=== PATIENT | male | born 1970 | race Caucasian/White ===

== ENCOUNTER 2017-06-16 14:35 | Emergency (ER) | payer OTHER ==
[2017-06-16 14:59] VITALS: BMI 36.6
[2017-06-16 15:03] VITALS: RESP 18; TEMP 98.4
--- NOTE | 2017-06-16 15:19 | ED PDOC ---
Arrival/HPI - General Chief Complaint: Back Pain Time Seen by Provider: 06/16/17 15:10 Historian: Patient - History of Present Illness Narrative History of Present Illness (Text): 06/16/17 15:15 46 y/o male, pmh including cyst on the lower back, nkda, c/o lower back cystic pain and swelling x 4-5 days. Pt. stated that he has lump on the same region for about 1 year, usually not painful, started to be painful for the past 4-5 days, aching pain, painful to palpitate, no fever or chills, no numbness or tingling, no urinary or bowel incontinence or retention, no other medical or psychological complaints. Past Medical History - Provider Review Nursing Documentation Reviewed: Yes - Infectious Disease Hx of Infectious Diseases: None - Psychiatric Hx Substance Use: No - Anesthesia Hx Anesthesia: No - Suicidal Assessment Feels Threatened In Home Enviroment: No Family/Social History - Physician Review Nursing Documentation Reviewed: Yes Family/Social History: Unknown Family HX Smoking Status: Never Smoked Hx Alcohol Use: No Hx Substance Use: No Allergies/Home Meds Allergies/Adverse Reactions: Allergies No Known Allergies Allergy (Verified 07/02/16 12:36) Review of Systems - Review of Systems Constitutional: absent: Fatigue, Fevers Eyes: absent: Vision Changes ENT: absent: Hearing Changes Respiratory: absent: SOB, Cough Cardiovascular: absent: Chest Pain Gastrointestinal: absent: Abdominal Pain, Nausea, Vomiting Skin: Rash, Skin Lesions. absent: Pruritis, Laceration, Abscess, Ulcer, Cellulitis Neurological: absent: Headache, Dizziness, Speech Changes, Facial Droop Physical Exam Vital Signs Reviewed: Yes Vital Signs Temp Pulse Resp BP Pulse Ox 06/16/17 15:02 98.4 F 89 18 126/80 97 Temperature: Afebrile Blood Pressure: Normal Pulse: Regular Respiratory Rate: Normal Appearance: Positive for: Well-Appearing, Non-Toxic, Comfortable Pain Distress: Moderate Mental Status: Positive for: Alert and Oriented X 3 - Systems Exam Head: Present: Atraumatic, Normocephalic Pupils: Present: PERRL Extroacular Muscles: Present: EOMI Conjunctiva: Present: Normal Mouth: Present: Moist Mucous Membranes Neck: Present: Normal Range of Motion Respiratory/Chest: Present: Clear to Auscultation, Good Air Exchange. No: Respiratory Distress, Accessory Muscle Use Cardiovascular: Present: Regular Rate and Rhythm, Normal S1, S2. No: Murmurs Abdomen: Present: Normal Bowel Sounds. No: Tenderness, Distention, Peritoneal Signs Back: Present: Normal Inspection, Other (Lower lumbar region: visible and palpable fluctuant with tenderness to palpate abscess approx. 6cm diameter with no cellulitir or streaking, no ulcers, no shingle or vesicular type of rash, no bullseye or target signs, FROM without limitation sensation intact, motor 5/5, neurovascular intact. ). No: CVA Tenderness, Paraspinal Tenderness, Pain with Leg Raise Upper Extremity: Present: Normal Inspection. No: Cyanosis, Edema Lower Extremity: Present: Normal Inspection. No: Edema Neurological: Present: GCS=15, CN II-XII Intact, Speech Normal Skin: Present: Warm, Dry, Normal Color. No: Rashes Psychiatric: Present: Alert, Oriented x 3, Normal Insight, Normal Concentration Medical Decision Making ED Course and Treatment: 06/16/17 15:18 -sonogram bedsite confirm approx. 1.5cm underneath the skin there is approx. [id number] fluid filled abscess noted, discussed and agreed on the I&D. -sensation intact, motor 5/5, irrigate with normal saline, clean with betadine, injected approx. 3cc of lidocaine with epinephrine, #11 blade made 1cm incision , approx. 2cc of purulant drainage noted with blood tinged, iodoform packing 1/2 " inserted, xerofoam and gauze dressing, tape, sensation intact, motor 5/5. Pt. tolerated the procedure well, no focal neurological deficits 06/16/17 16:18 -keflex, bactrim ds, motrin. -Discharge home with keflex, bactrim ds, motrin, return to the ER for wound check/packing and dressing change, keep the dressing dry and clean follow up with your own pmd and general surgeon within 2 days, return to the ER for any new or worsening signs or symptoms. - Medication Orders Current Medication Orders: Discontinued Medications Cephalexin Monohydrate (Keflex) 500 mg PO STAT STA PRN Reason: Protocol Stop: 06/16/17 16:23 Ibuprofen (Motrin Tab) 600 mg PO STAT STA Stop: 06/16/17 16:23 Trimethoprim/Sulfamethoxazole (Bactrim Ds Tab) 1 tab PO STAT STA PRN Reason: Protocol Stop: 06/16/17 16:23 - PA / CCIE / Resident Statement MD/DO has reviewed & agrees with the documentation as recorded. Disposition/Present on Arrival - Present on Arrival Any Indicators Present on Arrival: No History of DVT/PE: No History of Uncontrolled Diabetes: No Urinary Catheter: No History of Decub. Ulcer: No History Surgical Site Infection Following: None - Disposition Have Diagnosis and Disposition been Completed?: Yes Diagnosis: Abscess of lower back Disposition: HOME/ ROUTINE Disposition Time: 15:19 Patient Plan: Discharge Patient Problems: Current Active Problems Problem Status Onset Abscess of lower back Acute Condition: IMPROVED Additional Instructions: -Discharge home with keflex, bactrim ds, motrin, return to the ER for wound check/packing and dressing change, keep the dressing dry and clean follow up with your own pmd and general surgeon within 2 days, return to the ER for any new or worsening signs or symptoms. Prescriptions: Cephalexin [cephalexin] 500 mg PO QID #40 cap Ibuprofen [Motrin Tab] 600 mg PO QID PRN #24 tab PRN Reason: Other Sulfamethoxazole/Trimethoprim [Bactrim Ds Tablet] 1 each PO BID #20 tablet Referrals: PCP,NO [Primary Care Provider] - Follow up with primary Brandan Monk MD [Medical Doctor] - Follow up with primary Forms: [employer] (Norwegian), WORK NOTE
[2017-06-16] MEDS ORDERED: Lidocaine 1%/Epinephrine 1:100000 30 ml vial IJ STA (15:37)
[2017-06-16] MEDS ORDERED: Lidocaine 1% w Epi 1:100,000 Inj IJ STA (15:44)
[2017-06-16] MEDS ORDERED: Tmp-Smz 800 mg-160 mg DS Tab PO STA (16:22)
[2017-06-16 17:03] VITALS: BP 134/70; PULSE 88; O2SAT 100
== END 2017-06-16 17:01 | disposition home or self-care (01) ==
LOC: ED 14:35
DX: L02.212 Cutaneous abscess of back [any part, except buttock and flank] (principal)

== ENCOUNTER 2017-06-19 13:24 | Emergency (ER) | payer OTHER, SELFPAY ==
[2017-06-19 13:24] VITALS: BMI 36.6
[2017-06-19 13:55] VITALS: BP 133/85; PULSE 79; RESP 18; TEMP 97.8; O2SAT 96
--- NOTE | 2017-06-19 14:04 | ED PDOC ---
Arrival/HPI - General Historian: Patient - General Chief Complaint: Wound Check Time Seen by Provider: 06/19/17 13:56 - History of Present Illness Narrative History of Present Illness (Text): 06/19/17 14:01 46 y/o male, s/p I&D with the lower back skin abscess drained by me about 3 days ago, currently on the keflex/bactrim, told to come back to the ER in 2 days for dressing and packing change along to check as well. Pt. stated that the pain has decreased significantly, feeling much better now, no fever or chills, no numbness or tingling, no other medical or psychological complaints. (Jc Sexton) Past Medical History - Provider Review Nursing Documentation Reviewed: Yes - Infectious Disease Hx of Infectious Diseases: None - Psychiatric Hx Substance Use: No - Anesthesia Hx Anesthesia: No - Suicidal Assessment Feels Threatened In Home Enviroment: No Family/Social History - Physician Review Nursing Documentation Reviewed: Yes Family/Social History: Unknown Family HX Smoking Status: Never Smoked Hx Alcohol Use: No Hx Substance Use: No Allergies/Home Meds Allergies/Adverse Reactions: Allergies No Known Allergies Allergy (Verified 07/02/16 12:36) Review of Systems - Review of Systems Constitutional: absent: Fatigue, Fevers Eyes: absent: Vision Changes ENT: absent: Hearing Changes Respiratory: absent: SOB, Cough Cardiovascular: absent: Chest Pain Gastrointestinal: absent: Abdominal Pain, Nausea, Vomiting Skin: Abscess. absent: Rash, Pruritis, Skin Lesions, Ulcer, Cellulitis Neurological: absent: Headache, Dizziness Psychiatric: absent: Anxiety, Depression Physical Exam Vital Signs Reviewed: Yes Temperature: Afebrile Blood Pressure: Normal Pulse: Regular Respiratory Rate: Normal Appearance: Positive for: Well-Appearing, Non-Toxic, Comfortable Pain Distress: None Mental Status: Positive for: Alert and Oriented X 3 - Systems Exam Head: Present: Atraumatic, Normocephalic Pupils: Present: PERRL Extroacular Muscles: Present: EOMI Conjunctiva: Present: Normal Mouth: Present: Moist Mucous Membranes Neck: Present: Normal Range of Motion Respiratory/Chest: Present: Clear to Auscultation, Good Air Exchange. No: Respiratory Distress, Accessory Muscle Use Cardiovascular: Present: Regular Rate and Rhythm, Normal S1, S2. No: Murmurs Abdomen: Present: Normal Bowel Sounds. No: Tenderness, Distention, Peritoneal Signs Back: Present: Normal Inspection Upper Extremity: Present: Normal Inspection. No: Cyanosis, Edema Lower Extremity: Present: Normal Inspection. No: Edema Neurological: Present: GCS=15, Speech Normal Skin: Present: Warm, Dry, Rashes (visible incision wound approx. 0.75cm noted with packing noted on the wound, packing removed and visible purulant discharge as well, no cellulitis or ulcer noted on incision wound, wound healing well and dry. ), Normal Color Psychiatric: Present: Alert, Oriented x 3, Normal Insight, Normal Concentration Medical Decision Making ED Course and Treatment: 06/19/17 14:04 -old packing removed, surrounding clean with betadine, new 1/4" packing inserted which the length is shorter this time, xerofoam and gauze dressing. -Discharge home with education on continue the antibiotics at home, return to the ER or see a general surgeon for packing check and dressing change in 2 days , follow up with your own pmd within 2 days as well, return to the ER for any new or worsening signs or symptoms. (Jc Sexton) 06/19/17 14:23 I was available for consultation during PA evaluation. The chart was reviewed by me, and I agree with disposition. The documented history was done by the physician riprap placing supervisor. The documented physical exam was done by the physician riprap placing supervisor. The documented procedures were done by the physician riprap placing supervisor. (Rod Garibay) - PA / MEAT SOAKER / Resident Statement MD/DO has reviewed & agrees with the documentation as recorded. Disposition/Present on Arrival - Present on Arrival Any Indicators Present on Arrival: No History of DVT/PE: No History of Uncontrolled Diabetes: No Urinary Catheter: No History of Decub. Ulcer: No History Surgical Site Infection Following: None - Disposition Have Diagnosis and Disposition been Completed?: Yes Disposition Time: 14:06 Patient Plan: Discharge - Disposition Diagnosis: Wound check, abscess, Change or removal of wound packing Disposition: HOME/ ROUTINE Condition: IMPROVED Additional Instructions: -Discharge home with education on continue the antibiotics at home, return to the ER or see a general surgeon for packing check and dressing change in 2 days , follow up with your own pmd within 2 days as well, return to the ER for any new or worsening signs or symptoms. Referrals: Brandan Monk MD [Medical Doctor] - Follow up with primary Forms: [employer] (Irish), WORK NOTE
== END 2017-06-19 14:06 | disposition home or self-care (01) ==
LOC: ED 13:24
DX: Z51.89 Encounter for other specified aftercare (principal); Z48.00 Encounter for change or removal of nonsurgical wound dressing

== ENCOUNTER 2017-06-23 13:27 | Emergency (ER) | payer OTHER, SELFPAY ==
[2017-06-23 13:27] VITALS: BMI 36.6
--- NOTE | 2017-06-23 14:27 | ED PDOC ---
Arrival/HPI - General Chief Complaint: Wound Check Time Seen by Provider: 06/23/17 13:43 Historian: Patient - History of Present Illness Narrative History of Present Illness (Text): 06/23/17 14:47 A 46 year old male presents to the emergency department for wound check and packing s/p I&D 5 days ago. Patient here in emergency department for packing removal. Patient is taking antibiotics. Denies any fever, chills or any other complaints at this time. Symptom Onset: Sudden Symptom Course: Unchanged Activities at Onset: Rest Context: Home Past Medical History - Provider Review Nursing Documentation Reviewed: Yes - Infectious Disease Hx of Infectious Diseases: None - Psychiatric Hx Substance Use: No - Anesthesia Hx Anesthesia: No - Suicidal Assessment Feels Threatened In Home Enviroment: No Family/Social History - Physician Review Nursing Documentation Reviewed: Yes Family/Social History: No Known Family HX Smoking Status: Never Smoked Hx Alcohol Use: No Hx Substance Use: No Allergies/Home Meds Allergies/Adverse Reactions: Allergies No Known Allergies Allergy (Verified 06/23/17 13:44) Review of Systems - Physician Review All systems were reviewed & negative as marked: Yes - Review of Systems Constitutional: absent: Fevers, Other (chills) Skin: Abscess (wound packing and check s/p I&D of lower back abscess) Physical Exam Vital Signs Reviewed: Yes Vital Signs Temp Pulse Resp BP Pulse Ox 06/23/17 13:44 98.5 F 79 18 111/77 98 06/23/17 13:40 98.5 F 79 16 111/77 99 Temperature: Afebrile Blood Pressure: Normal Pulse: Regular Respiratory Rate: Normal Appearance: Positive for: Well-Appearing, Non-Toxic, Comfortable Pain Distress: None Mental Status: Positive for: Alert and Oriented X 3 - Systems Exam Head: Present: Atraumatic, Normocephalic Pupils: Present: PERRL Extroacular Muscles: Present: EOMI Conjunctiva: Present: Normal Mouth: Present: Moist Mucous Membranes Neck: Present: Normal Range of Motion Respiratory/Chest: Present: Clear to Auscultation, Good Air Exchange. No: Respiratory Distress, Accessory Muscle Use Cardiovascular: Present: Regular Rate and Rhythm, Normal S1, S2. No: Murmurs Abdomen: Present: Normal Bowel Sounds. No: Tenderness, Distention, Peritoneal Signs Back: Present: Other (healing packed wound in lower back) Upper Extremity: Present: Normal Inspection. No: Cyanosis, Edema Lower Extremity: Present: Normal Inspection. No: Edema Neurological: Present: GCS=15, CN II-XII Intact, Speech Normal Skin: Present: Warm, Dry, Normal Color. No: Rashes Psychiatric: Present: Alert, Oriented x 3, Normal Insight, Normal Concentration Medical Decision Making ED Course and Treatment: 06/23/17 14:43 Impression: A 46 year old male presents for wound check and packing s/p I&D. Plan: -- Reassess and disposition Prior Visits: Notes and results from previous visits were reviewed. Patient last reported to the emergency department on 06/19/17 for evaluation of lower back skin abscess dressing and packaging. Progress Notes: On re-evaluation, patient feels better and is in no acute distress. Patient in agreement with plan to be discharged home. Patient is stable for discharge. Patient was instructed to follow up with physician/clinic in 1-2 days or return if symptoms worsen or new concerning symptoms arise. - PA / ACCOUNTING RECONCILIATION CLERK / Resident Statement MD/DO has reviewed & agrees with the documentation as recorded. - Scribe Statement The provider has reviewed the documentation as recorded by the Radha Hazel Provider Scribe Attestation: All medical record entries made by the Radha were at my direction and personally dictated by me. I have reviewed the chart and agree that the record accurately reflects my personal performance of the history, physical exam, medical decision making, and the department course for this patient. I have also personally directed, reviewed, and agree with the discharge instructions and disposition. Disposition/Present on Arrival - Present on Arrival Any Indicators Present on Arrival: No History of DVT/PE: No History of Uncontrolled Diabetes: No Urinary Catheter: No History of Decub. Ulcer: No History Surgical Site Infection Following: None - Disposition Have Diagnosis and Disposition been Completed?: Yes Diagnosis: Wound check, abscess Disposition: HOME/ ROUTINE Disposition Time: 14:26 Patient Plan: Discharge Patient Problems: Current Active Problems Problem Status Onset Wound check, abscess Acute Condition: STABLE Discharge Instructions (ExitCare): Acute Wound Care (ED) Print Language: BRAZILIAN Additional Instructions: Thank you for letting us take care of you today. You were treated for abscess. The emergency medical care you received today was directed at your acute symptoms. Return to the Emergency Department if your symptoms worsen, do not improve, or if you have any other problems. Please contact the clinic in 2 days for re-evaluation and follow up. Bring any paperwork you were given at discharge with you along with any medications you are taking to your follow up visit. Our treatment cannot replace ongoing medical care by a primary care provider (PCP) outside of the emergency department. [facility]. Referrals: PCP,NO [Primary Care Provider] - Follow up with primary [facility] [place]] - Follow up with primary Forms: [employer] (Bermudian), WORK NOTE
[2017-06-23 15:25] VITALS: BP 112/78; PULSE 80; RESP 17; TEMP 98.7; O2SAT 100
== END 2017-06-23 15:25 | disposition home or self-care (01) ==
LOC: ED 13:27
DX: Z51.89 Encounter for other specified aftercare (principal)

== ENCOUNTER 2017-06-30 17:34 | Emergency (ER) | payer OTHER ==
[2017-06-30 17:42] VITALS: BMI 34.6
[2017-06-30 17:43] VITALS: BP 135/69; PULSE 86; RESP 18; TEMP 98.3; O2SAT 100
--- NOTE | 2017-06-30 17:46 | ED PDOC ---
Arrival/HPI - General Chief Complaint: Wound Check Time Seen by Provider: 06/30/17 17:38 Historian: Patient, Family, Human Factors Specialist - History of Present Illness Time/Duration: Prior to Arrival Associated Symptoms (Text): 06/30/17 17:45 Patient presents to the emergency Department for a wound check of an abscess of his lower back which had an incision and drainage on June 16. He's been seen in the emergency department several times for follow-up. He states that he feels fine but he wants to take a shower and was told to keep it dry and wants to know if he can take a shower. Past Medical History - Infectious Disease Hx of Infectious Diseases: None - Cardiac Hx Cardiac Disorders: Yes - Pulmonary Hx Emphysema: No - Neurological Hx Parkinson's Disease: No - HEENT Hx Sinusitis: No - Renal Hx Kidney Stones: No - Hematological/Oncological Hx Cirrhosis: No - Integumentary Hx Melanoma: No - Musculoskeletal/Rheumatological Hx Unsteady Gait: No - Gastrointestinal Hx Esophageal Varices: No - Genitourinary/Gynecological Hx Hematuria: No - Psychiatric Hx Post Traumatic Stress Disorder: No Hx Substance Use: No - Anesthesia Hx Anesthesia: No - Suicidal Assessment Feels Threatened In Home Enviroment: No Family/Social History - Physician Review Nursing Documentation Reviewed: Yes Family/Social History: Unknown Family HX Smoking Status: Never Smoked Hx Alcohol Use: No Hx Substance Use: No Allergies/Home Meds Allergies/Adverse Reactions: Allergies No Known Allergies Allergy (Verified 06/30/17 17:42) Physical Exam Vital Signs Temp Pulse Resp BP Pulse Ox 06/30/17 17:42 98.3 F 86 18 135/69 100 Temperature: Afebrile Blood Pressure: Normal Pulse: Regular Respiratory Rate: Normal Appearance: Positive for: Well-Appearing, Non-Toxic, Comfortable Pain Distress: None Mental Status: Positive for: Alert and Oriented X 3 - Systems Exam Skin: Present: Warm, Dry, Normal Color, Other (Wound is clean and dry with no signs of infection.). No: Rashes Disposition/Present on Arrival - Present on Arrival Any Indicators Present on Arrival: No History of DVT/PE: No History of Uncontrolled Diabetes: No Urinary Catheter: No History of Decub. Ulcer: No History Surgical Site Infection Following: None - Disposition Have Diagnosis and Disposition been Completed?: Yes Diagnosis: Wound check, abscess Disposition: HOME/ ROUTINE Disposition Time: :46 Patient Plan: Discharge Condition: GOOD Discharge Instructions (ExitCare): Abscess (ED) Additional Instructions: Follow-up with PMD. Follow-up in the ER as needed. Patient may shower. Forms: [employer] (Citizen Of [place])
== END 2017-06-30 18:15 | disposition home or self-care (01) ==
LOC: ED 17:34
DX: Z51.89 Encounter for other specified aftercare (principal)

== ENCOUNTER 2017-09-21 11:59 | Emergency (ER) | payer SELFPAY ==
[2017-09-21 11:59] VITALS: BMI 34.6
[2017-09-21 12:12] VITALS: BP 146/90; PULSE 94; RESP 16; TEMP 98.6; O2SAT 98
--- NOTE | 2017-09-21 12:29 | ED PDOC ---
Arrival/HPI - General Chief Complaint: Abnormal Skin Integrity Time Seen by Provider: 09/21/17 12:03 Historian: Patient, Spouse - History of Present Illness Narrative History of Present Illness (Text): 09/21/17 12:26 This 46 yo male presents to this ED c/o right mid back abscess x 3 months. Patient noted he had an abscess a few months ago, which has I&D. Patient denies other complains. Time/Duration: Other (see hpi) Context: Home Past Medical History - Provider Review Nursing Documentation Reviewed: Yes - Infectious Disease Hx of Infectious Diseases: None - Cardiac Hx Cardiac Disorders: Yes - Pulmonary Hx Emphysema: No - Neurological Hx Parkinson's Disease: No - HEENT Hx HEENT Disorder: No - Renal Hx Renal Disorder: No - Endocrine/Metabolic Hx Endocrine Disorders: No - Hematological/Oncological Hx Blood Disorders: No - Integumentary Hx Dermatological Disorder: Yes Other/Comment: ABSCESS - Musculoskeletal/Rheumatological Hx Musculoskeletal Disorders: No Hx Unsteady Gait: No - Gastrointestinal Hx Gastrointestinal Disorders: No Hx Esophageal Varices: No - Genitourinary/Gynecological Hx Genitourinary Disorders: No - Psychiatric Hx Psychophysiologic Disorder: No Hx Substance Use: No - Surgical History Other/Comment: I/D OF ABSCESS - Anesthesia Hx Anesthesia: No - Suicidal Assessment Feels Threatened In Home Enviroment: No Family/Social History - Physician Review Nursing Documentation Reviewed: Yes Family/Social History: Other (noncontributory) Smoking Status: Never Smoked Hx Alcohol Use: No Hx Substance Use: No Allergies/Home Meds Allergies/Adverse Reactions: Allergies No Known Allergies Allergy (Verified 06/30/17 17:42) Review of Systems - Review of Systems Constitutional: Normal. absent: Fatigue, Weight Change, Fevers Eyes: Normal ENT: Normal Respiratory: Normal Cardiovascular: Normal Gastrointestinal: Normal Genitourinary Male: Normal Musculoskeletal: Normal Skin: Abscess Neurological: Normal Endocrine: Normal Hemo/Lymphatic: Normal Psychiatric: Normal Physical Exam Vital Signs Temp Pulse Resp BP Pulse Ox 09/21/17 12:04 98.6 F 94 H 16 146/90 98 Temperature: Afebrile Blood Pressure: Normal Pulse: Regular Respiratory Rate: Normal Appearance: Positive for: Well-Appearing, Non-Toxic, Comfortable Pain Distress: None Mental Status: Positive for: Alert and Oriented X 3 - Systems Exam Head: Present: Atraumatic, Normocephalic Pupils: Present: PERRL Extroacular Muscles: Present: EOMI Conjunctiva: Present: Normal Mouth: Present: Moist Mucous Membranes Neck: Present: Normal Range of Motion Respiratory/Chest: Present: Clear to Auscultation, Good Air Exchange. No: Respiratory Distress, Accessory Muscle Use, Wheezes, Tender to Palpation Cardiovascular: Present: Regular Rate and Rhythm, Normal S1, S2. No: Murmurs Abdomen: No: Tenderness Back: Present: Other (right mid back Lipoma, approx.4 cm. No erythema, abscess , ecchymosis, or tendwerness). No: CVA Tenderness, Midline Tenderness, Paraspinal Tenderness, Pain with Leg Raise Upper Extremity: Present: Normal Inspection, Normal ROM, NORMAL PULSES, Neurovascularly Intact, Capillary Refill < 2s Lower Extremity: Present: Normal Inspection, NORMAL PULSES, Normal ROM, Capillary Refill < 2 s. No: Edema Neurological: Present: GCS=15, CN II-XII Intact, Speech Normal, Motor Func Grossly Intact, Normal Sensory Function, Normal Cerebellar Funct, Gait Normal, Memory Normal Skin: Present: Warm, Dry, Normal Color. No: Rashes Psychiatric: Present: Alert, Oriented x 3, Normal Insight, Normal Concentration Medical Decision Making ED Course and Treatment: 09/21/17 12:31 Re-evaluation. Patient feels better. Discussed results and plan with patient who expresses understanding. All questions answered and there is agreement with the plan to discharge home with instructions. Patient stable for discharge. Return if symptoms persist or worsen. Patient was recommended to f/u general surgeon for revaluation. Re-evaluation Time: 12:31 Reassessment Condition: Re-examined, Improved Disposition/Present on Arrival - Present on Arrival Any Indicators Present on Arrival: No History of DVT/PE: No History of Uncontrolled Diabetes: No Urinary Catheter: No History of Decub. Ulcer: No History Surgical Site Infection Following: None - Disposition Have Diagnosis and Disposition been Completed?: Yes Diagnosis: Lipoma of back Disposition: HOME/ ROUTINE Disposition Time: 12:31 Patient Plan: Discharge Patient Problems: Current Active Problems Problem Status Onset Lipoma of back Acute Condition: GOOD Discharge Instructions (ExitCare): Lipoma (ED) Additional Instructions: Call private doctor for follow up visit in 1-2 days. Call General surgeon regarding LIPOMA. return to emergency as needed. Referrals: Aj Kramer MD [Staff Provider] - Follow up with primary
== END 2017-09-21 12:37 | disposition home or self-care (01) ==
LOC: ED 11:59
DX: D17.1 Benign lipomatous neoplasm of skin and subcutaneous tissue of trunk (principal)

== ENCOUNTER 2017-11-16 09:19 | Emergency (ER) | payer OTHER, SELFPAY ==
[2017-11-16 09:19] VITALS: BMI 34.6
[2017-11-16 09:48] VITALS: BP 156/98; PULSE 73; RESP 16; TEMP 98.3; O2SAT 100
--- NOTE | 2017-11-16 09:57 | ED PDOC ---
Arrival/HPI - General Chief Complaint: Abnormal Skin Integrity Time Seen by Provider: 11/16/17 09:35 Historian: Patient - History of Present Illness Narrative History of Present Illness (Text): 11/16/17 09:51 A 46 year old male presents to the emergency department for wound unpacking from prior abscess on right upper back. Patient reports he was seen in the emergency room 6 days ago and had the abscess drained. Patient was instructed to follow up with Dr. Monk, but states he was unable to. Patient denies any fever or other complaints. Past Medical History - Provider Review Nursing Documentation Reviewed: Yes - Infectious Disease Hx of Infectious Diseases: None - Cardiac Hx Cardiac Disorders: No - Pulmonary Hx Respiratory Disorders: No - Neurological Hx Neurological Disorder: No - HEENT Hx HEENT Disorder: No - Renal Hx Renal Disorder: No - Endocrine/Metabolic Hx Endocrine Disorders: No - Hematological/Oncological Hx Blood Disorders: No - Integumentary Hx Dermatological Disorder: Yes Other/Comment: ABSCESS - Musculoskeletal/Rheumatological Hx Musculoskeletal Disorders: No Hx Unsteady Gait: No - Gastrointestinal Hx Gastrointestinal Disorders: No Hx Esophageal Varices: No - Genitourinary/Gynecological Hx Genitourinary Disorders: No - Psychiatric Hx Psychophysiologic Disorder: No Hx Substance Use: No - Surgical History Other/Comment: I/D OF ABSCESS - Anesthesia Hx Anesthesia: No - Suicidal Assessment Feels Threatened In Home Enviroment: No Family/Social History - Physician Review Nursing Documentation Reviewed: Yes Family/Social History: No Known Family HX Smoking Status: Never Smoked Hx Alcohol Use: No Hx Substance Use: No Allergies/Home Meds Allergies/Adverse Reactions: Allergies No Known Allergies Allergy (Verified 11/16/17 09:37) Home Medications: Home Meds Medication Instructions Recorded Confirmed Unobtainable 11/16/17 11/16/17 Review of Systems - Physician Review All systems were reviewed & negative as marked: Yes - Review of Systems Constitutional: absent: Fevers Skin: Other (Wound unpacking from prior abscess on right upper back) Physical Exam Vital Signs Reviewed: Yes Vital Signs Temp Pulse Resp BP Pulse Ox 11/16/17 09:39 98.3 F 73 16 156/98 H 100 Temperature: Afebrile Blood Pressure: Hypertensive Pulse: Regular Respiratory Rate: Normal Appearance: Positive for: Well-Appearing, Non-Toxic, Comfortable Pain Distress: None Mental Status: Positive for: Alert and Oriented X 3 - Systems Exam Head: Present: Atraumatic, Normocephalic Pupils: Present: PERRL Extroacular Muscles: Present: EOMI Conjunctiva: Present: Normal Back: Present: Other (Packed wound on right upper back. No tenderness, erythema , warmth, or swelling noted) Neurological: Present: GCS=15, CN II-XII Intact, Speech Normal Skin: Present: Warm, Dry, Normal Color. No: Rashes Psychiatric: Present: Alert, Oriented x 3, Normal Insight, Normal Concentration Medical Decision Making ED Course and Treatment: 11/16/17 09:51 Impression: A 46 year old male presents for wound unpacking. Patient had an incision and drainage procedure done on 11/10/17. Progress Notes: I was able to remove packing from wound on right upper back. No tenderness, erythema, warmth, or swelling noted. - PA / [employer]PL[employer] / Resident Statement MD/DO has reviewed & agrees with the documentation as recorded. - Scribe Statement The provider has reviewed the documentation as recorded by the Scribe Dilcia Tatum Provider Scribe Attestation: All medical record entries made by the Scribe were at my direction and personally dictated by me. I have reviewed the chart and agree that the record accurately reflects my personal performance of the history, physical exam, medical decision making, and the department course for this patient. I have also personally directed, reviewed, and agree with the discharge instructions and disposition. Disposition/Present on Arrival - Present on Arrival Any Indicators Present on Arrival: No History of DVT/PE: No History of Uncontrolled Diabetes: No Urinary Catheter: No History of Decub. Ulcer: No History Surgical Site Infection Following: None - Disposition Have Diagnosis and Disposition been Completed?: Yes Diagnosis: Encounter for wound re-check Disposition: HOME/ ROUTINE Disposition Time: 10:27 Patient Plan: Discharge Condition: GOOD Discharge Instructions (ExitCare): Incision and Drainage (ED) Additional Instructions: Please follow [facility]. Return to us only if worse or new problems. Referrals: Yuli Lofton, [Primary Care Provider] - Follow up with primary Forms: [employer] (Malay), WORK NOTE
== END 2017-11-16 10:34 | disposition home or self-care (01) ==
LOC: ED 09:19
DX: Z51.89 Encounter for other specified aftercare (principal)